=== PATIENT | male | born 1935 | race Caucasian/White ===

== ENCOUNTER 2020-03-19 19:24 | Emergency (ER) | payer MEDICARE, OTHER ==
[~2020-03-19] VITALS: Ht 175.3 cm; Wt 97.5 kg
[~2020-03-19 19:24] MED LIST: LISINOPRIL10 MG PO; NORCO 5-325 TA1 EACH PO; PROSTATE MED; SIMVASTATIN10 MG
[2020-03-19] MEDS ORDERED: KEFLEX500 M1 PO (21:15)
[2020-03-19 21:26] VITALS: BP 145/92
== END 2020-03-19 21:27 | disposition home or self-care (01) ==
LOC: M.ERS 19:24
DX: S00.81XA Abrasion of other part of head, initial encounter (principal); S80.212A Abrasion, left knee, initial encounter; S60.512A Abrasion of left hand, initial encounter; M79.671 Pain in right foot; I10 Essential (primary) hypertension; E78.00 Pure hypercholesterolemia, unspecified; Z90.49 Acquired absence of other specified parts of digestive tract; W18.39XA Other fall on same level, initial encounter; Y93.89 Activity, other specified; Y92.89 Other specified places as the place of occurrence of the external cause; Y99.8 Other external cause status

== ENCOUNTER 2020-05-14 23:33 | Inpatient (IN) | payer MEDICARE, OTHER ==
[~2020-05-14] VITALS: Ht 177.8 cm; Wt 101.1 kg
--- NOTE | ~2020-05-14 | CON ---
[address] [address] CONSULTATION Name: ALBERTOEDDY Soriano Room: [address] ADM IN M.R.#: [id number] Admission: 05/15/20 Attend Phys: Jarvis Murphy Discharge: Date of : 37 Report #: [id number] THIS REPORT FOR: //name// cc: Terri Garcia MD, Therese M. MD ~ THIS REPORT FOR: //name// CC: Tyrell Garcia DATE OF SERVICE: 05/15/2020 HISTORY OF PRESENT ILLNESS: This is an 84-year-old male patient who provided some history. His granddaughter, who lives in the same house, provided some history. He presented with what looks like weakness on the right side. He was seen in the Emergency Room and workup was done and subsequently he was admitted today, the Neurology consultation was requested. It looks like the patient has been weak on the left side. He fell. He hurt his shoulder. Shoulder is still hurting. They did a CT of the head and CT of the C-spine. They also did a CT angio. 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 That is on the right side, which will correlate with the patient's symptoms. He may have been either same or become somewhat worse yesterday, but he was fluctuating. He does take aspirin at home. That CT angiogram was also unremarkable. REVIEW OF SYSTEMS: He says he had strokes in the past, but does not give any well-defined history for that. He said he had a stent put in his head, but subsequently after looking at his imaging study, it looks like it was in the carotid. He does not know whether he can have the MRI or not. I called the MRI and talked to them and they said they have to check it out before they can do the MRI. The patient continued to complain of left shoulder pain. He had some melanoma surgery scheduled at [facility]. He had a gallbladder surgery done. He had a hernia repair done in the past. He had some eye issues, but I do not get a good feeling what it was. Sometimes, he is noticed to have ptosis. He has a high cholesterol according to him. He had knee surgery. This was his relevant 14-point review of system. PAST MEDICAL HISTORY: Positive for question of TIA or stroke. FAMILY HISTORY: Unremarkable. SOCIAL HISTORY: The patient does not smoke or abuse alcohol. PHYSICAL EXAMINATION: NEUROLOGIC: He is alert, responsive, able to follow simple and complex command. His speech and concentration look okay. Cranial nerve examination is somewhat unusual. He does appear to have some ptosis, [place] [address] CONSULTATION Name: ALBERTOEDDY Christie Room: [address] IN .R.#: [id number] Admission: 05/15/20 Attend Phys: Jarvis Murphy Discharge: Date of : 37 Report #: [id number] the visual field testing, he did reasonably well. I cannot tell any asymmetry of the face. His neuromuscular examination is difficult to carry out. He is complaining of lot of pain in the left shoulder and that is after the fall. His x-rays are negative. He otherwise can move the left upper extremity as well as left lower extremity. Left lower extremity he can move against gravity and some resistance. His position sense is intact on both sides. His reflexes could not be elicited on both sides. He says nobody has been able to elicit reflexes as far as he remembers. His tone looks symmetrical. His plantars are mute on both sides. There is no meningeal sign. There is no carotid bruit. I could not look at the patient's fundus. His pulses were difficult to feel in the lower extremities. He does not have any edema, cyanosis, or jaundice. CARDIAC: Appears unremarkable. HEENT: He is hard of hearing, but his vision looks okay. He does not have any dysmorphic features of eyes, ears, and face. VITAL SIGNS: His blood pressure is 142/73, pulse is 67, temperature is 97.4. LABORATORY DATA: His platelet count is somewhat low at 139. I reviewed his CT angio and CT and is summarized as above. IMPRESSION AND PLAN: 1. This patient most likely has a right basal ganglion cerebrovascular accident, which will correlate with the patient's symptoms. 2. I have asked the MRI to check further to see if they can do an MRI in this patient to confirm the stroke. 3. We will await PT/OT evaluation. 4. He probably needs an orthopedic consult because he is still complaining of a lot of pain in the left shoulder and may need an MRI there. He needs to be on dual antiplatelet therapy. His platelet count is somewhat low, but I gave him a loading dose of Plavix; his platelet is somewhat low, so I gave him 300 mg, but both 300 and 600 have been tried. He should continue aspirin and unfortunately, the strokes become worse before they become better and sometimes they have complete paralysis on the left side. That is just the natural cause of the stroke. Thank you very much for this referral and we will follow this patient along with you. By: [id number] [id number] Allen MD /emiliano
[~2020-05-14 23:33] MED LIST changes: +KEFLEX500 M1 PO
[2020-05-14 23:43] VITALS: BP 155/97
[2020-05-15 00:43] LABS: URINE BILIRUBIN NEGATIVE (Negative); URINE BLOOD 1+ (Negative); URINE CLARITY CLEAR; URINE COLOR YELLOW; URINE GLUCOSE-RANDOM NEGATIVE (Negative); URINE KETONES NEGATIVE (Negative); URINE LEUKOCYTES-REFLEX NEGATIVE (Negative); URINE NITRITE-REFLEX NEGATIVE (Negative); URINE PROTEIN NEGATIVE (Negative); URINE SPECIFIC GRAVITY 1.025 (1.005-1.030); URINE UROBILINOGEN 0.2 E.U./dl (0.2-1.0)
[2020-05-15 00:55] LABS: CASTS None Seen /LPF (None Seen); CRYSTALS None Seen /LPF (None Seen); MUCUS 4-6 Moderate strn/LPF (None Seen); SQUAMOUS 0-3 Few /LPF (0-3); URINE RBC 3-10 Few /HPF (0-2); URINE WBC-REFLEX 0-5 Rare /HPF (0-5)
--- NOTE | 2020-05-15 00:56 | NUR ---
[facility] [phone]
[2020-05-15 01:03] LABS: ABSOLUTE BASOPHILS 0.1 thou/uL (0.0-0.2); ABSOLUTE EOSINOPHILS 0.3 thou/uL (0.0-0.7); ABSOLUTE LYMPHOCYTES 0.8 thou/uL (0.8-5.3); ABSOLUTE MONOCYTES 0.6 thou/uL (0.0-1.2); ABSOLUTE NEUTROPHILS 5.9 thou/uL (1.6-8.1); BASOPHILS 0.7 %; EOSINOPHILS 4.4 %; HEMATOCRIT 42.4 % (42.0-52.0); HEMOGLOBIN 14.9 gm/dL (14.0-18.0); LYMPHOCYTES 10.8 %; MCH 32.5 pg (26.0-34.0); MCV 92.7 fL (80.0-100.0); MONOCYTES 8.2 %; MPV 8.9 fl. (7.2-11.1); NUCLEATED RBCS 0 /100WBC; PLATELET COUNT* 139 thou/uL (150-400); POLYS 75.9 %; RBC 4.58 mil/uL (4.50-6.00); RDW-CV 14.1 % (10.5-14.5); WBC 7.8 thou/uL (4.0-11.0)
[2020-05-15] MEDS ORDERED: METOPROLOL SUCC25 M1 PO (01:08)
[2020-05-15] MEDS ORDERED: FLONASE 0.05%50 MCG NASAL (01:10)
[2020-05-15] MEDS ORDERED: LIPITOR 20 MG T20 M1 PO (01:10)
[2020-05-15] MEDS ORDERED: CARDURA1 MG PO (01:11)
[2020-05-15] MEDS ORDERED: ASA81BEC PO (01:11)
[2020-05-15 01:18] LABS: CALCIUM 9.1 mg/dL (8.5-10.1); CREATININE 1.2 mg/dL (0.6-1.3); POTASSIUM 4.2 mmol/L (3.5-5.1)
[2020-05-15 01:28] LABS: ALBUMIN 4.1 g/dL (3.4-5.0); MAGNESIUM 1.9 mg/dL (1.8-2.4); TOTAL BILIRUBIN 0.8 mg/dL (<0.1-1.0); TOTAL PROTEIN 7.1 g/dL (6.4-8.2)
[2020-05-15 07:00] VITALS: BP 146/72
[2020-05-15 08:53] VITALS: BP 150/90
--- NOTE | 2020-05-15 09:51 | NUR ---
RECEIVED REPORT FROM JESSA GOLD THIS AM AT 0730- DX: CVA- PT ARRIVED TO ROOM 226 VIA BED AT 0817- DIPPER FISH PLACED ORDERED, TRACING SR- PT A&O X4- CONT OF B/B- ASSIST X1 WITH TRANSFERS- LCTA, RESP EVEN AND UN-LABORED- VSS, O2 SAT 96% ON RA- ABD SOFT/ROUND/NON-TENDER, BS X4 QUADS- LAST BM REPORTED 05/14/20- IV NOTED TO RIGHT AC INTACT AND SL- BREAKFAST GIVEN THIS AM WITH GOOD PO INTAKE NOTED- RIGHT UPPER ABD SCAB NOTED R/T MOLE REMOVAL R/T MELANOMA- RIGHT AND LEFT CELLULITS NOTED AND REPORTED- NIH NOTED AT 1 UPON ASSESSMENT R/T DRIFT WITH PAIN NOTED TO LUE R/T FALL- SWALLOW PASSED WITH NO PROBLEMS NOTED-CALL LIGHT AND PERSONAL BELONGINGS WITH IN REACH- HOURLY ROUNDS IN PLACE R/T SAFETY/NEEDS- ALL NEEDS MET AT THIS TIME-WCTM
--- NOTE | 2020-05-15 11:05 | EKG ---
[place] [address] ELECTROCARDIOGRAM REPORT Name: EDDY DOMINGUEZ Room: [address] ADM IN .R.#: [id number] Admission: 05/15/20 Attend Phys: Tyrell Vallejo Discharge: Date of : 37 Date of Service: 05/14/20 2342 Report #: [id number] THIS REPORT FOR: //name// [facility] ED Test Date: 2020-05-14 Test Time: 23:42:24 Pat Name: EDDY DOMINGUEZ Department: Room: [facility] Gender: M Stone Layer: OR : 1935 Requested By: Catherine Subramanian Order Number: [id number] MD: Aaron Chaves Measurements Intervals [place] Rate: 55 P: 40 FL: 217 QRS: -12 QRSD: 97 T: 53 QT: 423 QTc: 405 Interpretive Statements Sinus rhythm Atrial premature complex Borderline prolonged FL interval Inferior infarct, old Baseline wander in lead(s) V1 No previous ECG available for comparison Electronically Signed On 05-15-2020 11:05:50 CDT by Aaron Chaves [email or web address] <ELECTRONICALLY SIGNED> By: Aaron Chaves MD, FAC 05/15/20 1105 2342 2342 Aaron Chaves MD, [facility] /EPI
[2020-05-15 12:00] VITALS: BP 116/68
[2020-05-15 16:02] VITALS: BP 142/73
[2020-05-15 20:30] VITALS: BP 156/77
[2020-05-16] VITALS: BP 138/76
[2020-05-16 04:00] VITALS: BP 141/79
--- NOTE | 2020-05-16 05:11 | NUR ---
PT SLEPT WELL OVERNIGHT AFTER RECEIVING HS MEDS. AOX4, PLEASANT COOPERATIVE. UP WITH ASSIST TO STAND AT BEDSIDE TO VOID PER URINAL.ROOM AIR. TELE SR. RAC SL IV. TAKING PILLS WHOLE WITH WATER WITHOUT DIFFICULTY. CO PAIN WITH MOVEMENT TO LEFT SHOULDER/ARM AND NECK-TYLENOL GIVEN WITH GOOD RESULT. NIH SCALE 4. LIMITED MOBILITY AND SENSORY DEFICIT TO LEFT ARM, SLIGHT L FACIAL DROOP WITH SMILE. MRI CANCELLED BY DR AFTER CAROTID STENT COULD NOT BE CONFIRMED TO BE OK FOR SCAN. ASSESSMENT CHARTED. CALL LITE IN EASY REACH, BED ALARM ON FOR SAFETY.
[2020-05-16 05:31] LABS: ALBUMIN 3.5 g/dL (3.4-5.0); CALCIUM 7.9 mg/dL (8.5-10.1); CREATININE 1.2 mg/dL (0.6-1.3); MAGNESIUM 1.9 mg/dL (1.8-2.4); POTASSIUM 3.9 mmol/L (3.5-5.1); TOTAL BILIRUBIN 0.9 mg/dL (<0.1-1.0); TOTAL PROTEIN 6.4 g/dL (6.4-8.2)
[2020-05-16 06:05] LABS: CHOLESTEROL 105 mg/dL (<200); HDL CHOLESTEROL 29 mg/dL (>40); LDL CHOLESTEROL 58 mg/dL (<100); TC:HDL 3.6 Ratio (Not establshd); TRIGLYCERIDE 93 mg/dL (<150); VLDL 19 mg/dL (<40)
[2020-05-16 06:09] LABS: SERUM ASSESSMENT Clear
[2020-05-16 07:34] VITALS: BP 143/80
--- NOTE | 2020-05-16 09:02 | NUR ---
ASSUMED CARE OF PT THIS AM AROUND 07- FULLERETTE IN PLACE ORDERED, TRACING SR WITH 1ST DEGREE- UPON ASSESSMENT PT NOTED TO BE RESTING IN BED- PT A&O X4- CONT OF BOWEL AND BLADDER- EXT ASSIST X1 WITH TRANSFERS- LCTA, RESP EVEN AND UN-LABORED- VSS, O2 SAT 92% ON RA- ABD SOFT/ROUND/NON-TENDER, BS X4 QUADS- LAST BM REPORTED X2 DAYS AGO- RIGHT UPPER MID ABD LESSION NOTED R/T RECENT MOLE REMOVAL- PT UP TO BED SIDE RECLINER THIS AM WITH GOOD PO INTAKE NOTED WITH BREAKFAST- PT REPORTS PAIN 5/10 TO LEFT UPPER SHOULDER WITH LIMMITED MOVEMENT NOTED- PRN TYLENOL GIVEN THIS AM- NIH NOTED AT 4 THIS AM R/T SCANT LEFT FACIAL DROP AND INABILITY TO RAISE ARM- CALL LIGHT AND PERSONAL BELONGINGS WITH IN REACH- HOURLY ROUNDS IN PLACE R/T SAFETY/NEEDS- ALL NEEDS MET AT THIS TIME-WCTM
[2020-05-16 12:32] VITALS: BP 129/67
[2020-05-16 17:42] VITALS: BP 149/78
[2020-05-16 18:29] LABS: HEMATOCRIT 39.4 % (42.0-52.0); HEMOGLOBIN 13.9 gm/dL (14.0-18.0); MCH 32.7 pg (26.0-34.0); MCHC 35.2 g/dL (28.0-37.0); MPV 8.6 fl. (7.2-11.1); RBC 4.23 mil/uL (4.50-6.00); RDW-CV 13.9 % (10.5-14.5); WBC 8.7 thou/uL (4.0-11.0)
[2020-05-16 20:00] VITALS: BP 124/62
[2020-05-17] VITALS: BP 124/58
[2020-05-17 04:00] VITALS: BP 130/72
[2020-05-17 05:37] LABS: GLYCOHEMOGLOBIN (HGB A1C) 5.9 % (4.8-5.6)
[2020-05-17 07:39] VITALS: BP 129/36
--- NOTE | 2020-05-17 08:43 | NUR ---
ASSUMED CARE OF PT THIS AM AROUND 0715- CT TECHNICIAN IN PLACE ORDERED, TRACING SR/1ST DEGREE- UPON ASSESSMENT PT NOTED TO BE UP IN BED SIDE CHAIR, WATCHING TV-PT A&O X4, FORGETFULL- CONT OF BOWEL AND BLADDER- EXT ASSIST X1 WITH TRANSFERS- LCTA, RESP EVEN AND UN-LABORED- VSS, O2 SAT 98% ON ON RA-ABD SOFT/ROUND/NON-TENDER, BS X4 QUADS- LAST BM REPORTED X3 DAYS AGO- PRN BISACODYL GIVEN THIS AM-IV NOTED TO RIGHT AC INTACT AND SL, IV ABT GIVEN THIS AM PRESCRIBED- SET UP WITH MEALS, GOOD PO INTAKE NOTED THIS AM WITH BREAKFAST- PT REPORTS PAIN 5/10 TO LEFT SHOULDER WITH LIMMITED MOVEMENT, PRN TYLENOL GIVEN THIS AM AT 0851- CALL LIGHT AND PERSONAL BELONGINGS WITH IN REACH- HOURLY ROUNDS IN PLACE R/T SAFETY/NEEDS- BED/CHAIR ALARM IN PLACE AND WORKING FOR PT SAFETY/NEEDS- ALL NEEDS MET AT THIS TIME-WCTM
[2020-05-17 12:00] VITALS: BP 91/58
[2020-05-17 16:00] VITALS: BP 123/64
[2020-05-17 20:00] VITALS: BP 134/67
[2020-05-18 01:00] VITALS: BP 128/60
[2020-05-18 04:00] VITALS: BP 141/48
[2020-05-18 07:34] VITALS: BP 126/68
--- NOTE | 2020-05-18 08:20 | NUR ---
ASSUMED CARE OF PT THIS AM AROUND 07- LICENSE CLERK IN PLACE ORDERED, TRACING SA WITH 1ST DEGREE- UPON ASSESSMENT PT NOTED TO BE RESTING IN BED- PT A&O X4, FORGETFULL- CONT OF B/B- EXT AX 1 WITH TRANSFERS- LCTA, DYSPNEA NOTED ON EXERTION- VSS, O2 SAT 95% ON RA- ABD SOFT/ROUND/NON-TENDER, BS X4 QUADS- LAST BM REPORTED 05/17/20- IV NOTED TO RIGHT AC INTACT AND AND SL, IV ABT GIVEN THIS AM PRESCRIBED- NIH NOTED AT 4 WITH NO CHANGE NOTED- LEFT SHOULDER/BACK PAIN 01/11; PRN TYLENOL GIVEN THIS AM- PT WORKING WITH PT THIS SHIFT, TOLERATING WELL- CALL LIGHT AND PERSONAL BELONGINGS WITH IN REACH- BED/CHAIR ALARM IN PLACE AND WORKING FOR PT SAFETY- ALL NEEDS MET AT THIS TIME-GRETTA
--- NOTE | 2020-05-18 09:31 | NUR ---
CM SPOKE TO THE PT TO DISCUSS HIS HOME SITUATION, DISCHARGE PLANNING, AND TO INFORM OF THE ROLE OF CM. PT A&O, BUT SLOW TO RESPOND TO QUESTIONS. PT RESIDES AT HOME WITH SON AND GRANDDAUGHTER. 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 PT HAS NO HX OF HH OR SNF. CM WILL REMAIN AVAILABLE TO ASSIST AND FOLLOW NEEDED.
[2020-05-18] MEDS ORDERED: LIDOPATCH1 EACH TOP (10:27)
[2020-05-18] MEDS ORDERED: BENZONATATE100 MG PO (10:27)
[2020-05-18] MEDS ORDERED: REGLAN 10 MG TA10 MG PO (10:27)
[2020-05-18] MEDS ORDERED: AUGMENTIN 875-1 EACH PO (10:28)
[2020-05-18 12:39] VITALS: BP 126/68
[2020-05-18 14:35] VITALS: BP 129/57
[2020-05-18 16:00] VITALS: BP 134/64
== END 2020-05-18 18:30 | DRG 65 ==
LOC: M.ERS 23:33 → M.2W 05-15 04:06 → M.TBA-ER 05-15 04:06 → M.2W 05-15 08:47
PROVIDERS: Emergency Medicine; Internal Medicine; Psychiatry & Neurology Neuromuscular Medicine; ADMIT Internal Medicine; ATTEND Internal Medicine
DX: I63.89 Other cerebral infarction (principal); L03.311 Cellulitis of abdominal wall; G81.94 Hemiplegia, unspecified affecting left nondominant side; E78.00 Pure hypercholesterolemia, unspecified; N40.0 Benign prostatic hyperplasia without lower urinary tract symptoms; I10 Essential (primary) hypertension; K59.00 Constipation, unspecified; R68.81 Early satiety; S60.229A Contusion of unspecified hand, initial encounter; S80.00XA Contusion of unspecified knee, initial encounter; X58.XXXA Exposure to other specified factors, initial encounter; Z20.828 Contact with and (suspected) exposure to other viral communicable diseases; Z90.49 Acquired absence of other specified parts of digestive tract; Z85.89 Personal history of malignant neoplasm of other organs and systems; Z79.899 Other long term (current) drug therapy; Y93.89 Activity, other specified; Y92.89 Other specified places as the place of occurrence of the external cause; Y99.8 Other external cause status; Z88.1 Allergy status to other antibiotic agents

== ENCOUNTER 2020-05-18 14:51 | Inpatient (IN) | payer MEDICARE, OTHER ==
[~2020-05-18] VITALS: Ht 177.8 cm; Wt 100.6 kg
[~2020-05-18 14:51] MED LIST changes: +ASA81BEC PO; +AUGMENTIN 875-1 EACH PO; +BENZONATATE100 MG PO; +CARDURA1 MG PO; +FLONASE 0.05%50 MCG NASAL; +LIDOPATCH1 EACH TOP; +LIPITOR 20 MG T20 M1 PO; +METOPROLOL SUCC25 M1 PO; +REGLAN 10 MG TA10 MG PO
[2020-05-18 18:47] VITALS: BP 141/72
[2020-05-19 04:54] LABS: HEMATOCRIT 39.4 % (42.0-52.0); HEMOGLOBIN 13.6 gm/dL (14.0-18.0); MCH 32.1 pg (26.0-34.0); MCHC 34.5 g/dL (28.0-37.0); RBC 4.23 mil/uL (4.50-6.00); RDW-CV 13.9 % (10.5-14.5); WBC 6.7 thou/uL (4.0-11.0)
[2020-05-19 05:04] LABS: POTASSIUM 4.1 mmol/L (3.5-5.1)
[2020-05-19 08:00] VITALS: BP 135/64
[2020-05-19 19:25] VITALS: BP 120/56
[2020-05-20 07:00] VITALS: BP 140/67
[2020-05-20 20:00] VITALS: BP 161/70
[2020-05-21 07:56] VITALS: BP 154/74
[2020-05-21 20:08] VITALS: BP 142/82
[2020-05-22 08:00] VITALS: BP 129/60; BP 150/77
[2020-05-22 20:00] VITALS: BP 125/61
[2020-05-23 08:00] VITALS: BP 130/69
[2020-05-23 20:00] VITALS: BP 127/85
[2020-05-24 08:31] VITALS: BP 121/52
[2020-05-24 20:00] VITALS: BP 127/66
[2020-05-25 03:28] LABS: HEMATOCRIT 39.9 % (42.0-52.0); HEMOGLOBIN 13.8 gm/dL (14.0-18.0); MCH 32.3 pg (26.0-34.0); MCHC 34.6 g/dL (28.0-37.0); MCV 93.2 fL (80.0-100.0); MPV 8.8 fl. (7.2-11.1); RBC 4.29 mil/uL (4.50-6.00); RDW-CV 13.7 % (10.5-14.5); WBC 7.4 thou/uL (4.0-11.0)
[2020-05-25 03:47] LABS: ALBUMIN 3.5 g/dL (3.4-5.0); CALCIUM 8.4 mg/dL (8.5-10.1); CREATININE 1.2 mg/dL (0.6-1.3); POTASSIUM 4.2 mmol/L (3.5-5.1); TOTAL BILIRUBIN 0.7 mg/dL (<0.1-1.0); TOTAL PROTEIN 6.5 g/dL (6.4-8.2)
[2020-05-25 08:00] VITALS: BP 141/80
[2020-05-25 20:00] VITALS: BP 127/72
[2020-05-26 08:00] VITALS: BP 124/98
[2020-05-26 19:00] VITALS: BP 121/69
[2020-05-27 08:00] VITALS: BP 135/66
[2020-05-27 19:58] VITALS: BP 140/70
[2020-05-28 08:00] VITALS: BP 138/72
[2020-05-28 20:07] VITALS: BP 128/68
[2020-05-29 07:46] VITALS: BP 132/75
[2020-05-29 20:22] VITALS: BP 136/73
[2020-05-30 07:00] VITALS: BP 153/80
[2020-05-30 19:40] VITALS: BP 139/63
[2020-05-31 07:45] VITALS: BP 144/84
[2020-05-31 19:55] VITALS: BP 139/84
[2020-06-01 08:00] VITALS: BP 125/71
[2020-06-01 19:30] VITALS: BP 131/78
[2020-06-02 04:55] LABS: HEMOGLOBIN 14.4 gm/dL (14.0-18.0); MCHC 34.3 g/dL (28.0-37.0); MCV 93.4 fL (80.0-100.0); MPV 8.9 fl. (7.2-11.1); RBC 4.5 mil/uL (4.50-6.00); RDW-CV 14.1 % (10.5-14.5); WBC 6.6 thou/uL (4.0-11.0)
[2020-06-02 05:11] LABS: ALBUMIN 3.8 g/dL (3.4-5.0); CALCIUM 8.9 mg/dL (8.5-10.1); CREATININE 1.1 mg/dL (0.6-1.3); MAGNESIUM 1.9 mg/dL (1.8-2.4); TOTAL BILIRUBIN 0.6 mg/dL (<0.1-1.0); TOTAL PROTEIN 6.8 g/dL (6.4-8.2)
[2020-06-02 07:54] VITALS: BP 159/72
[2020-06-02 19:00] VITALS: BP 130/73
[2020-06-03 07:00] VITALS: BP 113/83
[2020-06-03 19:00] VITALS: BP 125/58
[2020-06-04 08:00] VITALS: BP 135/71
[2020-06-04 20:04] VITALS: BP 137/68
[2020-06-05 08:30] VITALS: BP 157/50
[2020-06-05 20:09] VITALS: BP 121/69
[2020-06-06 08:00] VITALS: BP 147/79
[2020-06-06] MEDS ORDERED: PLAVIX 75 MG TA75 M1 PO (12:29)
[2020-06-06] MEDS ORDERED: METOPROLOL SUCC25 M1 PO (12:29)
[2020-06-06] MEDS ORDERED: CARDURA1 MG PO (12:29)
[2020-06-06] MEDS ORDERED: LIPITOR 20 MG T20 M1 PO (12:29)
[2020-06-06 13:19] VITALS: BP 147/79
[2020-06-06 13:33] VITALS: BP 147/79
[2020-06-06 14:58] VITALS: BP 147/79
== END 2020-06-06 14:20 | disposition home or self-care (01) | DRG 56 ==
LOC: M.REH 14:51
PROVIDERS: Family Medicine; ADMIT Physical Medicine & Rehabilitation; ATTEND Physical Medicine & Rehabilitation
DX: I69.354 Hemiplegia and hemiparesis following cerebral infarction affecting left non-dominant side (principal); I63.9 Cerebral infarction, unspecified; L03.311 Cellulitis of abdominal wall; N39.0 Urinary tract infection, site not specified; I10 Essential (primary) hypertension; E78.5 Hyperlipidemia, unspecified; N40.0 Benign prostatic hyperplasia without lower urinary tract symptoms; K59.00 Constipation, unspecified; B96.20 Unspecified Escherichia coli [E. coli] as the cause of diseases classified elsewhere; H02.401 Unspecified ptosis of right eyelid; E78.00 Pure hypercholesterolemia, unspecified; R00.1 Bradycardia, unspecified; D69.6 Thrombocytopenia, unspecified; Z79.899 Other long term (current) drug therapy; Z85.89 Personal history of malignant neoplasm of other organs and systems; Z82.49 Family history of ischemic heart disease and other diseases of the circulatory system